=== PATIENT | female | born 1970 | race Caucasian/White ===

== ENCOUNTER 2024-05-05 09:37 | Emergency (ER) | payer BC, SELFPAY ==
[2024-05-05 10:55] VITALS: BP 148/98; PULSE 89; RESP 16; TEMP 36.4; O2SAT 99
--- NOTE | 2024-05-05 12:07 | ED_ITS ---
HPI - URI/Sore Throat General Chief Complaint: Upper Respiratory Infection Stated Complaint: fatigue,sore throat,cough Time Seen by Provider: 05/05/24 11:50 Source: patient and RN notes reviewed Mode of arrival: ambulatory Limitations: no limitations History of Present Illness HPI Narrative: Patient presents today complaining of with fatigue, headache, sore throat, postnasal drip, slight cough. Symptoms have present since yesterday. Denies fever shortness breath. She has tried Advil cold and flu with some mild relief. was recently diagnosed with strep throat. Daughter has COVID. Related Data Home Medications ?Medication ?Instructions ?Recorded ?Confirmed ?Last Taken ?Type No Home Medications 05/05/24 05/05/24 Unknown History Allergies Allergy/AdvReac Type Severity Reaction Status Date / Time No Known Allergies Allergy Verified 05/05/24 10:55 Review of Systems Review of Systems: CONSTITUTIONAL: Denies body aches, fever, chills, or sweats.+ fatigue EYES: Denies visual changes, redness, or discharge. ENT: Denies rhinorrhea, or otalgia.+congestion, scratchy throat, post nasal throat CARDIOVASCULAR: Denies chest pain, palpitations, or edema. RESPIRATORY: Denies dyspnea.+cough GASTROINTESTINAL: Denies abdominal pain, nausea, vomiting, or diarrhea. GENITOURINARY: Denies dysuria or hematuria. SKIN: Denies rash, itching, or wounds. MUSCULOSKELETAL: Denies back pain, joint pain, or myalgia. NEUROLOGIC: Denies headache, numbness, tingling, or weakness. PSYCH: Denies depression or anxiety. PMFSH Comments At time of signature, I have reviewed and agree with nursing past medical, surgical, social and family history unless otherwise noted. Please see nursing chart for further information. There is no relevant family history pertinent to the presenting complaint Exam Narrative: GENERAL: Well-appearing, well-nourished, and in no acute distress. HEAD: Normocephalic, atraumatic. EYES: EOMI. No redness or drainage. Conjunctivae normal. ENT: Mucous membranes pink and moist. Nares clear. No rhinorrhea. TMs normal bilaterally. Throat normal. Uvula midline. NECK: Normal AROM. Supple. No lymphadenopathy. CHEST: No respiratory distress. Clear to auscultation. HEART: Regular rate and rhythm. No murmur appreciated. EXTREMITIES: Normal range of motion. No edema. SKIN: Warm, dry, no rash. Capillary refill normal. Normal skin turgor. NEURO: No focal deficits. Alert and oriented x3. Gait steady. PSYCH: Normal affect. No signs of depression or anxiety. Course Course Level of Care: Express Care Visit Vital Signs Vital signs: Vital Signs Temperature 97.5 F L 05/05/24 10:55 Pulse Rate 89 05/05/24 10:55 Respiratory Rate 16 05/05/24 10:55 Blood Pressure 148/98 H 05/05/24 10:55 Pulse Oximetry 99 05/05/24 10:55 Temperature 97.5 F L 05/05/24 10:55 Pulse Rate 89 05/05/24 10:55 Respiratory Rate 16 05/05/24 10:55 Blood Pressure 148/98 H 05/05/24 10:55 Pulse Oximetry 99 05/05/24 10:55 Reviewed MDM - URI/Sore Throat MDM Narrative Medical decision making narrative: Rapid strep negative, COVID negative. Strep culture pending. Symptoms likely viral in etiology. Discussed [id number] medication use and duration of illness. No prescription medications indicated at this time. Anticipatory guidance given. Differential Diagnosis Differential diagnosis: Likely upper respiratory infection, sinusitis, viral infection, pharyngitis and other (strep throat, COVID) Lab Data Attestation: I reviewed the patient's lab results. Labs: Lab Results 05/05/24 05/05/24 Range/Units 10:55 11:53 POC SARS CoV-2 Ag Negative (Negative) POC Grp A Strep Screen Negative (Negative) Critical Care Time Critical Care Time Critical Care Time: No Discharge Plan Discharge Clinical Impression: Upper respiratory infection Qualifiers: URI type: unspecified URI Qualified Code(s): J06.9 - Acute upper respiratory infection, unspecified Patient Disposition: Home, Self-Care Condition: Stable Instructions: Upper Respiratory Infection (DC) Additional Instructions: Your COVID-19 and rapid strep swab was negative today at [facility]. You will be notified in a few days if the culture comes back positive for strep, and appropriate antibiotics will be called in for you at that time. Your symptoms are likely due to a viral illness, which is not treated with antibiotics. Viral symptoms can be present for up to 7-10 days. Take Tylenol or ibuprofen for fever or pain. Rest and stay hydrated. Follow up with your PCP in 7 days if symptoms are not improving. Go to the ER immediately if you have any difficulty breathing or swallowing. Your blood pressure was elevated above 120/80 today at Urgent Care. This puts you above the threshold for follow up. Please schedule a followup visit with your personal physician as soon as possible, for further evaluation and treatment. Even blood pressure exceeding 120/80 may indicate pre-hypertension. Patient Language: Kiswahili Prescriptions: No Action No Home Medications Follow-up/Referrals: PHYSICIAN,REMITTANCE CLERK [Primary Care Provider] - Time of Disposition: 12:28
[2024-05-05 12:10] LABS: EDSTREPNEGPOS1 Negative (Negative)
[2024-05-05 12:21] LABS: EDCOVIDSCREEN Negative (Negative)
== END 2024-05-05 12:37 | disposition home or self-care (01) ==
PROVIDERS: Emergency Provider Nurse Practitioner
DX: J06.9 Acute upper respiratory infection, unspecified (principal); Z20.822 Contact with and (suspected) exposure to COVID-19
CPT/HCPCS: 87081; 87426; 87880; 99203; G0463